=== PATIENT | male | born 1975 | race Caucasian/White ===

== ENCOUNTER 2017-10-21 01:11 | Emergency (ER) | payer MEDICAID ==
[~2017-10-21] VITALS: Ht 180.3 cm; Wt 83.0 kg
[2017-10-21 01:11] VITALS: BP_SYST 134
[2017-10-21] MEDS ORDERED: KETOROLAC TROMETHAMINE 60 MG/2 ML VIAL IM ONE (01:30)
[2017-10-21 02:06] VITALS: BP_SYST 134
== END 2017-10-21 02:06 | disposition home or self-care (01) ==
LOC: SED 01:11
DX: R07.89 Other chest pain (principal); R06.02 Shortness of breath; F17.210 Nicotine dependence, cigarettes, uncomplicated; R03.0 Elevated blood-pressure reading, without diagnosis of hypertension
CPT/HCPCS: 93005; 96372; 99283; J1885

== ENCOUNTER 2018-01-16 02:38 | Emergency (ER) | payer MEDICAID ==
[~2018-01-16] VITALS: Ht 180.3 cm; Wt 95.3 kg
[2018-01-16 02:52] VITALS: BP_SYST 159
[2018-01-16] MEDS ORDERED: HYDROcodone/ACETAMIN 7.5-325 MG TAB PO ONE (04:15)
[2018-01-16 04:36] VITALS: BP_SYST 136
== END 2018-01-16 04:36 | disposition home or self-care (01) ==
LOC: SED 02:38
DX: R07.89 Other chest pain (principal); Y04.0XXA Assault by unarmed brawl or fight, initial encounter; Y93.89 Activity, other specified; Y92.89 Other specified places as the place of occurrence of the external cause; Y99.8 Other external cause status
CPT/HCPCS: 71100; 99284

== ENCOUNTER 2018-01-27 14:02 | Emergency (ER) | payer MEDICAID ==
[~2018-01-27] VITALS: Ht 180.3 cm; Wt 87.5 kg
[2018-01-27 14:05] VITALS: BP_SYST 152
[2018-01-27] MEDS ORDERED: KETOROLAC TROMETHAMINE 30 MG VIAL IVP ONE (14:45)
[2018-01-27] MEDS ORDERED: ONDANSETRON HCL 4 MG/2 ML VIAL IVP ONE (14:45)
[2018-01-27] MEDS ORDERED: NACL 0.9% 1,000 ML IV ONE (15:00)
[2018-01-27 15:43] VITALS: BP_SYST 140
== END 2018-01-27 15:54 | disposition home or self-care (01) ==
LOC: SED 14:02
DX: G44.209 Tension-type headache, unspecified, not intractable (principal); F17.210 Nicotine dependence, cigarettes, uncomplicated; I10 Essential (primary) hypertension
CPT/HCPCS: 96374; 96375; 99284; J1885; J2405; J7030

== ENCOUNTER 2018-03-23 14:52 | Emergency (ER) | payer MEDICAID ==
[~2018-03-23] VITALS: Ht 180.3 cm; Wt 93.0 kg
[2018-03-23 14:56] VITALS: BP_SYST 159
[2018-03-23] MEDS ORDERED: NACL 0.9% 1,000 ML IV ONE (15:15)
[2018-03-23] MEDS ORDERED: DIPHENHYDRAMINE INJ 50 MG/ML VIAL IVP ONE (15:15)
[2018-03-23] MEDS ORDERED: chlorproMAZINE HCL 50 MG/ 2 ML AMP IVP ONE (15:15)
[2018-03-23 16:24] VITALS: BP_SYST 148
== END 2018-03-23 16:24 | disposition home or self-care (01) ==
LOC: SED 14:52
DX: R51 Headache (principal); F17.210 Nicotine dependence, cigarettes, uncomplicated; R03.0 Elevated blood-pressure reading, without diagnosis of hypertension
CPT/HCPCS: 70450; 93005; 96361; 96374; 96375; 99284; J1200; J3230; J7030

== ENCOUNTER 2018-06-09 18:17 | Emergency (ER) | payer MEDICAID ==
[~2018-06-09] VITALS: Ht 180.3 cm; Wt 88.9 kg
[2018-06-09 18:20] VITALS: BP_SYST 166
[2018-06-09 19:35] VITALS: BP_SYST 146
[2018-06-13] MEDS ORDERED: KETOROLAC TROMETHAMINE 30 MG VIAL IVP ONE (16:45)
== END 2018-06-09 19:35 | disposition home or self-care (01) ==
LOC: SED 18:17
DX: J02.9 Acute pharyngitis, unspecified (principal); R03.0 Elevated blood-pressure reading, without diagnosis of hypertension; F17.210 Nicotine dependence, cigarettes, uncomplicated
CPT/HCPCS: 36415; 86403; 87081; 99283

== ENCOUNTER 2019-02-19 17:33 | Emergency (ER) | payer MEDICAID ==
[~2019-02-19] VITALS: Ht 177.8 cm; Wt 86.2 kg
--- NOTE | 2019-02-19 17:37 | NUR ---
Patient to ER bed h1 for evaluation. Side rails up.
--- NOTE | 2019-02-19 17:38 | NUR ---
patient arrived in custody of [facility]. patient denies any discomfort and or pain at this time. patients VSS are stable and patient is resting in chair. no other health concerns noted at this time. will continue to monitor.
[2019-02-19 17:40] VITALS: BP_SYST 137
--- NOTE | 2019-02-19 17:40 | NUR ---
ER at bedside examining patient.
[2019-02-19 17:56] VITALS: BP_SYST 137
--- NOTE | 2019-02-19 17:58 | NUR ---
Patient given written and verbal discharge instructions and verbalizes understanding. ER MD discussed with patient the results and treatment provided. Patient in stable condition. ID arm band removed. Rx of zero given. Patient educated on pain management and to follow up with PMD. Pain Scale 0/10. Opportunity for questions provided and answered. Medication side effect fact sheet provided.
== END 2019-02-19 17:58 ==
LOC: SED 17:33
DX: M54.5 Low back pain (principal); R03.0 Elevated blood-pressure reading, without diagnosis of hypertension
CPT/HCPCS: 99283

== ENCOUNTER 2019-09-26 12:44 | Emergency (ER) | payer MEDICAID ==
[~2019-09-26] VITALS: Ht 180.3 cm; Wt 86.2 kg
[2019-09-26 12:55] VITALS: BP_SYST 114
[2019-09-26] MEDS ORDERED: DIPH-TET-PERTUS Vaccine 0.5 ML VIAL (ADACEL) I.M. ONE (13:00)
[2019-09-26 13:39] VITALS: BP_SYST 112
== END 2019-09-26 13:37 | disposition home or self-care (01) ==
LOC: SED 12:44
DX: S61.211A Laceration without foreign body of left index finger without damage to nail, initial encounter (principal); W26.8XXA Contact with other sharp object(s), not elsewhere classified, initial encounter; Y93.89 Activity, other specified; Y92.89 Other specified places as the place of occurrence of the external cause; Y99.8 Other external cause status
CPT/HCPCS: 90715; 99283

== ENCOUNTER 2020-02-01 11:09 | Emergency (ER) | payer MEDICAID ==
[~2020-02-01] VITALS: Ht 180.3 cm; Wt 81.6 kg
[2020-02-01 11:21] VITALS: BP_SYST 116
[2020-02-01] MEDS ORDERED: KETOROLAC TROMETHAMINE 30 MG VIAL IVP ONE (11:30)
[2020-02-01 12:22] LABS: BASOPHILS # (AUTO) 0.1 K/uL (0.0-0.2); BASOPHILS % (AUTO) 0.4 % (0.0-2.0); EOSINOPHILS % (AUTO) 0.3 % (0.0-4.0); HEMATOCRIT 47.3 % (36-54); HEMOGLOBIN 15.4 g/dL (14.0-18.0); LYMPHOCYTES # (AUTO) 1.4 K/uL (1.0-5.5); LYMPHOCYTES % (AUTO) 11.4 % (20.5-51.5); MEAN CORPUSCULAR HEMOGLOBIN 28 pg (27-31); MEAN CORPUSCULAR HGB CONC 33 % (32-36); MEAN CORPUSCULAR VOLUME 87 fL (79.0-98.0); MONOCYTES # (AUTO) 0.5 K/uL (0.0-1.0); MONOCYTES % (AUTO) 4.2 % (1.7-9.3); NEUTROPHILS # (AUTO) 10.4 K/uL (1.8-7.7); NEUTROPHILS % (AUTO) 83.7 % (40.0-70.0); PLATELET COUNT (AUTO) 172 K/uL (130-430); RED BLOOD CELL COUNT(AUTO) 5.42 MIL/uL (4.2-6.2); RED CELL DISTRIBUTION WIDTH 14.5 % (9.0-15.0); WHITE BLOOD COUNT (AUTO) 12.5 K/uL (4.8-10.8)
[2020-02-01 12:48] LABS: ALBUMIN 4.1 g/dL (3.4-4.8); CALCIUM 9.5 mg/dL (8.4-11.0); CREATININE 0.85 mg/dL (0.55-1.30); TOTAL BILIRUBIN 0.5 mg/dL (0.0-1.0)
[2020-02-01 12:57] LABS: POTASSIUM 3.2 mmol/L (3.5-5.1)
[2020-02-01 13:34] LABS: BILIRUBIN,URINE NEGATIVE (NEGATIVE); BLOOD, URINE NEGATIVE (NEGATIVE); CLARITY/URINE TURBID (CLEAR); COLOR,URINE YELLOW (YELLOW); GLUCOSE,URINE NEGATIVE (NEGATIVE); KETONES,URINE NEGATIVE (NEGATIVE); LEUKOCYTE ESTERASE ,URINE NEGATIVE (NEGATIVE); NITRITE, URINE NEGATIVE (NEGATIVE); PH,URINE 8.5 (5.0-8.0); PROTEIN URINE 1+ (NEGATIVE)
[2020-02-01 13:55] LABS: BACTERIA,URINE FEW /HPF (None Seen); RBC,URINE 0-3 /HPF (0-3); URINE AMORPHOUS PHOSPHATES 2+ /HPF (None Seen); WBC,URINE 0-3 /HPF (0-3)
[2020-02-01 14:10] LABS: BARBITURATE, URINE NEGATIVE (NEG <=200)
[2020-02-01 14:11] LABS: METHAMPHETAMINES SCREEN,URINE POSITIVE (NEG <=500); URINE AMPHETAMINE NEGATIVE (NEG <=500)
[2020-02-01 14:12] LABS: BENZODIAZEPINE, URINE NEGATIVE (NEG <=150); CANNABINOID, URINE POSITIVE (NEG <=50); COCAINE, URINE NEGATIVE (NEG <=150); OPIATE, URINE NEGATIVE (NEG <=100); PHENCYCLIDINE SCREEN,URINE NEGATIVE (NEG <=25); UR TRICYCLIC ANTIDEPRESSANTS NEGATIVE (NEG <=300); URINE METHADONE POSITIVE (NEG <=200); URINE OXYCODONE SCREEN NEGATIVE (NEG <=100); URINE PROPOXYPHENE SCREEN NEGATIVE (NEG <=300)
[2020-02-01 14:39] VITALS: BP_SYST 146
== END 2020-02-01 14:40 | disposition home or self-care (01) ==
LOC: SED 11:09
DX: R10.30 Lower abdominal pain, unspecified (principal); E87.6 Hypokalemia; F17.210 Nicotine dependence, cigarettes, uncomplicated
CPT/HCPCS: 36415; 76705; 80053; 80307; 81000-TC; 83690-TC; 85025; 96374; 99285; J1885

== ENCOUNTER 2022-05-27 13:35 | Emergency (ER) | payer MEDICAID ==
[~2022-05-27] VITALS: Ht 180.3 cm; Wt 86.2 kg
[2022-05-27 14:00] VITALS: BP_SYST 132
--- NOTE | 2022-05-27 14:05 | NUR ---
Patient triaged and placed in waiting room. VSS and patient appears in no acute distress at this time. Accompanied by FAMILY, awaiting available bed, and MD notified of need for MSE.
[2022-05-27 15:00] VITALS: BP_SYST 132
--- NOTE | 2022-05-27 15:00 | NUR ---
CALLBACK TO SEE , NO ANSWER
== END 2022-05-27 15:30 | disposition left against medical advice (07) ==
LOC: SED 13:35
DX: R50.9 Fever, unspecified (principal); R05.9 Cough, unspecified; R51.9 Headache, unspecified; Z53.21 Procedure and treatment not carried out due to patient leaving prior to being seen by health care provider